=== PATIENT | female | born 1975 | race Caucasian/White ===

== ENCOUNTER → 2016-12-22 | Outpatient (CLI) | payer OTHER ==
[~2016-12-22] MED LIST: ALBUTEROL INH; ALBUTEROL0.09 MG/A2; ALBUTEROL2.5 MG/0.5 INH; AUGMENTIN 875 M1 TAB PO; CORDROL20 MG PO; ORASONE; SYNTHROID,LEV125 MCG PO; SYNTHROID,LEV150 MCG PO; Synthroid,Lev150 MCG; TOPAMAX100 M1 PO; WELLBUTRIN SR150 MG PO
[2016-12-22 08:48] LABS: HEMOGLOBIN 13.2 g/dl (12.0-16.0); MEAN CELL VOLUME 86.5 fl (81.0-99.0); MEAN CORPUSCULAR HGB 29.3 pg (27.0-31.0); MEAN CORPUSCULAR HGB CONC 33.8 g/dl (33.0-37.0); MEAN PLATELET VOLUME 9.9 fl (9.6-12.3); RED BLOOD COUNT 4.51 10*6/uL (4.10-5.10); RED CELL DISTRI WIDTH 11.8 % (0-14.5); WHITE BLOOD COUNT 7.3 10*3/uL (4.8-10.8)
[2016-12-22 09:22] LABS: ALBUMIN 3.7 gm/dl (3.1-4.5); ALKALINE PHOSPHATASE 96 U/L (45-117); BUN 16 mg/dl (7-24); CHLORIDE 107 mmol/L (98-107); CHOLESTEROL 215 mg/dL (<200); CREATININE 1.12 mg/dL (0.55-1.02); HDL CHOLESTEROL 57 mg/dl (40-60); LDL CHOLESTEROL 144 mg/dL (9-159); POTASSIUM 4.1 mmol/L (3.5-5.1); SGOT/AST 14 IU/L (3-35); SGPT/ALT 22 U/L (12-78); SODIUM 140 mmol/L (136-145); TOTAL PROTEIN 7.4 gm/dL (6.4-8.2); TRIGLYCERIDES 72 mg/dl (<150); VLDL CHOLESTEROL 14 mg/dL (6-40)
[2016-12-22 09:30] LABS: FREE T4 1.57 ng/dl (0.76-1.46)
[2016-12-22 09:41] LABS: THYROID STIM HORMONE (HS) < 0.005 uIU/ml (0.358-4.75)
== END | disposition home or self-care (01) ==
LOC: LAB 08:33
PROVIDERS: Family Medicine
DX: E03.9 Hypothyroidism, unspecified (principal); E66.9 Obesity, unspecified; R53.83 Other fatigue; E55.9 Vitamin D deficiency, unspecified

== ENCOUNTER 2017-02-15 20:47 | Emergency (ER) | payer OTHER ==
[~2017-02-15] VITALS: Ht 175.2 cm; Wt 111.1 kg
[2017-02-15 21:21] LABS: BASO # 0.1 10*3/uL (0.0-0.1); BASO % 0.4 % (0.0-1.0); EOS # 0.1 10*3/uL (0.0-0.4); EOS % 1.2 % (1.0-4.0); HEMATOCRIT 38.4 % (37.0-47.0); HEMOGLOBIN 13.3 g/dl (12.0-16.0); LYMPH # 2.7 10*3/uL (1.3-4.4); MEAN CELL VOLUME 84.6 fl (81.0-99.0); MEAN CORPUSCULAR HGB 29.3 pg (27.0-31.0); MEAN CORPUSCULAR HGB CONC 34.6 g/dl (33.0-37.0); MONO # 0.7 10*3/uL (0.1-1.0); MONO % 6.1 % (3.0-9.0); NEUT # 8.1 10*3/uL (2.3-7.9); NEUT % 69.1 % (47.0-73.0); PLATELET COUNT AUTOMATED 276 10*3/uL (130-400); RED BLOOD COUNT 4.54 10*6/uL (4.10-5.10); RED CELL DISTRI WIDTH 12.3 % (0-14.5); WHITE BLOOD COUNT 11.7 10*3/uL (4.8-10.8)
[2017-02-15 21:40] LABS: ALBUMIN 3.8 gm/dl (3.1-4.5); ALKALINE PHOSPHATASE 112 U/L (45-117); BUN 23 mg/dl (7-24); CHLORIDE 105 mmol/L (98-107); CREATININE 1.12 mg/dL (0.55-1.02); POTASSIUM 3.7 mmol/L (3.5-5.1); SGOT/AST 19 IU/L (3-35); SGPT/ALT 28 U/L (12-78); SODIUM 139 mmol/L (136-145); TOTAL PROTEIN 7.6 gm/dL (6.4-8.2)
[2017-02-15 21:41] LABS: TROPONIN I < 0.015 ng/ml (<0.045)
[2017-02-15] MEDS ORDERED: PROAIR HFA8.5 GM INH (22:34)
[2017-02-15] MEDS ORDERED: PREDNISONE20 M1 PO (22:34)
[2017-02-15] MEDS ORDERED: ZITHROMAX250 MG PO (22:34)
== END 2017-02-15 23:45 | disposition home or self-care (01) ==
LOC: ED 20:47
PROVIDERS: Emergency Medicine Emergency Medical Services
DX: J20.9 Acute bronchitis, unspecified (principal)

== ENCOUNTER → 2017-09-28 | Outpatient (CLI) | payer OTHER ==
[~2017-09-28] MED LIST changes: +PREDNISONE20 M1 PO; +PROAIR HFA8.5 GM INH; +ZITHROMAX250 MG PO
[2017-09-28 13:01] LABS: HEMATOCRIT 38.1 % (37.0-47.0); MEAN CELL VOLUME 85.2 fl (81.0-99.0); MEAN CORPUSCULAR HGB 29.1 pg (27.0-31.0); MEAN CORPUSCULAR HGB CONC 34.1 g/dl (33.0-37.0); MEAN PLATELET VOLUME 10.3 fl (9.6-12.3); RED BLOOD COUNT 4.47 10*6/uL (4.10-5.10); RED CELL DISTRI WIDTH 12.7 % (0-14.5)
[2017-09-28 13:31] LABS: ALBUMIN 3.6 gm/dl (3.1-4.5); BUN 15 mg/dl (7-24); CHLORIDE 109 mmol/L (98-107); CHOLESTEROL 188 mg/dL (<200); HDL CHOLESTEROL 61 mg/dl (40-60); LDL CHOLESTEROL 108 mg/dL (9-159); SGOT/AST 11 IU/L (3-35); SGPT/ALT 26 U/L (12-78); SODIUM 140 mmol/L (136-145); TOTAL PROTEIN 7.2 gm/dL (6.4-8.2); TRIGLYCERIDES 93 mg/dl (<150); VLDL CHOLESTEROL 19 mg/dL (6-40)
[2017-09-28 13:37] LABS: ALKALINE PHOSPHATASE 90 U/L (45-117); FREE T4 1.23 ng/dl (0.76-1.46); THYROID STIM HORMONE (HS) 0.081 uIU/ml (0.358-4.75)
[2017-09-28 13:50] LABS: VITAMIN D, 25-HYDROXY 29.1 ng/mL (30-100)
== END | disposition home or self-care (01) ==
LOC: LAB 12:12
PROVIDERS: Family Medicine
DX: F41.1 Generalized anxiety disorder (principal); E74.00 Glycogen storage disease, unspecified; R53.83 Other fatigue; E55.9 Vitamin D deficiency, unspecified; M25.572 Pain in left ankle and joints of left foot; E66.9 Obesity, unspecified

== ENCOUNTER → 2018-05-05 | Outpatient (CLI) | payer OTHER ==
[2018-05-05 14:26] LABS: HEMATOCRIT 39.7 % (37.0-47.0); MEAN CELL VOLUME 86.3 fl (81.0-99.0); MEAN CORPUSCULAR HGB 30.4 pg (27.0-31.0); MEAN CORPUSCULAR HGB CONC 35.3 g/dl (33.0-37.0); MEAN PLATELET VOLUME 10.3 fl (9.6-12.3); RED BLOOD COUNT 4.6 10*6/uL (4.10-5.10); RED CELL DISTRI WIDTH 12.4 % (0-14.5); WHITE BLOOD COUNT 8.7 10*3/uL (4.8-10.8)
[2018-05-05 14:57] LABS: ALBUMIN 3.8 gm/dl (3.1-4.5); ALKALINE PHOSPHATASE 94 U/L (45-117); BUN 17 mg/dl (7-24); CHLORIDE 107 mmol/L (98-107); CHOLESTEROL 219 mg/dL (<200); HDL CHOLESTEROL 58 mg/dl (40-60); LDL CHOLESTEROL 138 mg/dL (9-159); POTASSIUM 3.7 mmol/L (3.5-5.1); SGOT/AST 21 IU/L (3-35); SGPT/ALT 36 U/L (12-78); SODIUM 138 mmol/L (136-145); TOTAL PROTEIN 7.6 gm/dL (6.4-8.2); TRIGLYCERIDES 114 mg/dl (<150); VLDL CHOLESTEROL 23 mg/dL (6-40)
[2018-05-05 15:03] LABS: FREE T4 1.26 ng/dl (0.76-1.46); THYROID STIM HORMONE (HS) 0.219 uIU/ml (0.358-4.75)
== END | disposition home or self-care (01) ==
LOC: LAB 13:46
PROVIDERS: Family Medicine
DX: E55.9 Vitamin D deficiency, unspecified (principal); E03.9 Hypothyroidism, unspecified; E78.00 Pure hypercholesterolemia, unspecified

== ENCOUNTER → 2018-05-18 | Outpatient (CLI) | payer OTHER ==
[2018-05-19 07:07] LABS: FOLLICLE STIMULATING HORMONE 6.6 mIU/mL (.)
[2018-05-19 19:07] LABS: TESTOSTERONE FREE, (DIRECT) 2.4 pg/mL (0.0-4.2)
== END | disposition home or self-care (01) ==
LOC: LAB 07:47
PROVIDERS: Family Medicine
DX: F41.1 Generalized anxiety disorder (principal); L68.0 Hirsutism; R63.5 Abnormal weight gain; N91.2 Amenorrhea, unspecified; E74.00 Glycogen storage disease, unspecified

== ENCOUNTER → 2018-09-27 | Outpatient (CLI) | payer OTHER ==
[2018-09-27 16:44] LABS: HEMATOCRIT 36.5 % (37.0-47.0); HEMOGLOBIN 12.6 g/dl (12.0-16.0); MEAN CELL VOLUME 88.4 fl (81.0-99.0); MEAN CORPUSCULAR HGB 30.5 pg (27.0-31.0); MEAN CORPUSCULAR HGB CONC 34.5 g/dl (33.0-37.0); MEAN PLATELET VOLUME 10.3 fl (9.6-12.3); RED BLOOD COUNT 4.13 10*6/uL (4.10-5.10); RED CELL DISTRI WIDTH 12.5 % (0-14.5); WHITE BLOOD COUNT 8.6 10*3/uL (4.8-10.8)
[2018-09-27 17:15] LABS: ALBUMIN 3.7 gm/dl (3.1-4.5); CREATININE 1.24 mg/dL (0.55-1.02); POTASSIUM 3.7 mmol/L (3.5-5.1); TOTAL PROTEIN 7.6 gm/dL (6.4-8.2); URIC ACID 8.3 mg/dL (2.6-6.0)
== END | disposition home or self-care (01) ==
LOC: LAB 15:21
PROVIDERS: Family Medicine
DX: M25.50 Pain in unspecified joint (principal); M79.10 Myalgia, unspecified site

== ENCOUNTER → 2019-05-15 | Outpatient (CLI) | payer OTHER ==
[2019-05-15 12:09] LABS: HEMATOCRIT 40.5 % (37.0-47.0); HEMOGLOBIN 13.6 g/dl (12.0-16.0); MEAN CELL VOLUME 86.7 fl (81.0-99.0); MEAN CORPUSCULAR HGB 29.1 pg (27.0-31.0); MEAN CORPUSCULAR HGB CONC 33.6 g/dl (33.0-37.0); MEAN PLATELET VOLUME 10.2 fl (9.6-12.3); RED BLOOD COUNT 4.67 10*6/uL (4.10-5.10); RED CELL DISTRI WIDTH 12.2 % (0-14.5); WHITE BLOOD COUNT 6.8 10*3/uL (4.8-10.8)
[2019-05-15 13:02] LABS: ALBUMIN 3.9 gm/dl (3.1-4.5); BUN 18 mg/dl (7-24); CHLORIDE 108 mmol/L (98-107); CHOLESTEROL 181 mg/dL (<200); CREATININE 1.09 mg/dL (0.55-1.02); FREE T4 1.37 ng/dl (0.76-1.46); POTASSIUM 3.9 mmol/L (3.5-5.1); SGOT/AST 15 IU/L (3-35); SGPT/ALT 37 U/L (12-78); SODIUM 139 mmol/L (136-145)
[2019-05-15 13:12] LABS: ALKALINE PHOSPHATASE 80 U/L (45-117); HDL CHOLESTEROL 46 mg/dl (40-60); LDL CHOLESTEROL 114 mg/dL (9-159); THYROID STIM HORMONE (HS) 0.395 uIU/ml (0.358-4.75); TOTAL PROTEIN 7.4 gm/dL (6.4-8.2); TRIGLYCERIDES 105 mg/dl (<150); VLDL CHOLESTEROL 21 mg/dL (6-40)
== END | disposition home or self-care (01) ==
LOC: LAB 11:28
PROVIDERS: Family Medicine
DX: E55.9 Vitamin D deficiency, unspecified (principal); E78.00 Pure hypercholesterolemia, unspecified

== ENCOUNTER → 2021-09-11 | Outpatient (CLI) | payer BC ==
[2021-09-11 09:47] LABS: HEMATOCRIT 37.7 % (37.0-47.0); MEAN CELL VOLUME 84.7 fl (81.0-99.0); MEAN CORPUSCULAR HGB 29.4 pg (27.0-31.0); MEAN CORPUSCULAR HGB CONC 34.7 g/dl (33.0-37.0); MEAN PLATELET VOLUME 9.9 fl (9.6-12.3); RED BLOOD COUNT 4.45 10*6/uL (4.10-5.10); WHITE BLOOD COUNT 12.4 10*3/uL (4.8-10.8)
[2021-09-11 10:03] LABS: ALKALINE PHOSPHATASE 86 U/L (45-117); BUN 24 mg/dl (7-24); CHLORIDE 110 mmol/L (98-107); CHOLESTEROL 171 mg/dL (<200); CREATININE 0.98 mg/dL (0.55-1.02); FREE T4 0.95 ng/dl (0.76-1.46); LDL CHOLESTEROL 85 mg/dL (9-159); POTASSIUM 3.6 mmol/L (3.5-5.1); SGOT/AST 13 IU/L (3-35); SGPT/ALT 28 U/L (12-78); SODIUM 142 mmol/L (136-145); TOTAL PROTEIN 6.9 gm/dL (6.4-8.2); TRIGLYCERIDES 168 mg/dl (<150)
[2021-09-12 04:06] LABS: FOLLICLE STIMULATING HORMONE 8.7 mIU/mL (.); LUTEINIZING HORMONE 7.2 mIU/mL (.)
[2021-09-14 15:06] LABS: TESTOSTERONE FREE, (DIRECT) 0.6 pg/mL (0.0-4.2)
== END | disposition home or self-care (01) ==
LOC: LAB 09:19
PROVIDERS: ATTEND Family Medicine
DX: Z00.00 Encounter for general adult medical examination without abnormal findings (principal); R63.5 Abnormal weight gain; E55.9 Vitamin D deficiency, unspecified

== ENCOUNTER → 2022-04-27 | Outpatient (CLI) | payer BC ==
[2022-04-27 10:29] LABS: HEMATOCRIT 40.1 % (37.0-47.0); MEAN CORPUSCULAR HGB 29.2 pg (27.0-31.0); MEAN CORPUSCULAR HGB CONC 34.4 g/dl (33.0-37.0); RED BLOOD COUNT 4.72 10*6/uL (4.10-5.10); RED CELL DISTRI WIDTH 11.8 % (0-14.5)
[2022-04-27 10:49] LABS: ALKALINE PHOSPHATASE 98 U/L (46-116); BUN 22 mg/dl (9-23); CHLORIDE 99 mmol/L (98-107); CHOLESTEROL 195 mg/dL (<200); FREE T4 1.74 ng/dl (0.89-1.76); LDL CHOLESTEROL 128 mg/dL (9-159); POTASSIUM 4.2 mmol/L (3.4-5.1); SGPT/ALT 32 U/L (10-49); THYROID STIM HORMONE (HS) 0.693 uIU/ml (0.550-4.780); TOTAL PROTEIN 7.5 gm/dL (6.0-8.0); TRIGLYCERIDES 99 mg/dl (<150)
== END | disposition home or self-care (01) ==
LOC: LAB 09:45
PROVIDERS: ATTEND Family Medicine
DX: E78.00 Pure hypercholesterolemia, unspecified (principal); E55.9 Vitamin D deficiency, unspecified; E74.9 Disorder of carbohydrate metabolism, unspecified

== ENCOUNTER → 2023-06-01 | Outpatient (CLI) | payer BC ==
[2023-06-01 08:37] LABS: HEMATOCRIT 39.6 % (37.0-47.0); MEAN CELL VOLUME 85.5 fl (81.0-99.0); MEAN CORPUSCULAR HGB 29.2 pg (27.0-31.0); MEAN CORPUSCULAR HGB CONC 34.1 g/dl (33.0-37.0); MEAN PLATELET VOLUME 10.2 fl (9.6-12.3); RED BLOOD COUNT 4.63 10*6/uL (4.10-5.10); RED CELL DISTRI WIDTH 12.1 % (0-14.5); WHITE BLOOD COUNT 8.2 10*3/uL (4.8-10.8)
[2023-06-01 08:51] LABS: VITAMIN D, 25-HYDROXY 19.2 ng/mL (30-100)
[2023-06-01 08:52] LABS: ALKALINE PHOSPHATASE 91 U/L (46-116); BUN 12 mg/dl (9-23); CHLORIDE 106 mmol/L (98-107); CHOLESTEROL 183 mg/dL (<200); FREE T4 1.57 ng/dl (0.89-1.76); LDL CHOLESTEROL 118 mg/dL (9-159); POTASSIUM 3.9 mmol/L (3.4-5.1); SGPT/ALT 29 U/L (5-49); TOTAL PROTEIN 7.1 gm/dL (6.0-8.0); TRIGLYCERIDES 97 mg/dl (<150)
== END | disposition home or self-care (01) ==
LOC: LAB 07:41
PROVIDERS: ATTEND Family Medicine
DX: E78.00 Pure hypercholesterolemia, unspecified (principal); E55.9 Vitamin D deficiency, unspecified; E03.9 Hypothyroidism, unspecified; E66.9 Obesity, unspecified; E74.9 Disorder of carbohydrate metabolism, unspecified; R53.83 Other fatigue; L68.0 Hirsutism